=== PATIENT | female | born 1955 | race Hispanic/Latino ===

== ENCOUNTER → 2025-05-20 | Outpatient (REF) | payer MEDICARE ==
[~2025-05-20] MED LIST: GADOBENATE DIMEGLUMINE 1 ML IV ONE
== END ==
LOC: MRI 10:14
PROVIDERS: ATTEND Podiatrist Foot & Ankle Surgery
DX: D48.19 Other specified neoplasm of uncertain behavior of connective and other soft tissue (principal); M76.822 Posterior tibial tendinitis, left leg